=== PATIENT | male | born 1955 | race Caucasian/White ===

== ENCOUNTER 2018-05-07 15:31 | Inpatient (IN) | payer MEDICARE, OTHER ==
[2018-05-08] MEDS ORDERED: Nitroglycerin 0.4 MG Tab.SL SL PRN ×2 (15:21→16:50)
[2018-05-08] MEDS ORDERED: Ondansetron 4 MG Tab.DIS PO PRN (15:51)
[2018-05-08] MEDS ORDERED: Polyethylene Glycol 3350 Powder 17 GM Packet PO PRN (15:51)
[2018-05-08] MEDS ORDERED: Insuln Aspart Prot/Insulin Aspart 100 Units/ML 3 ML FlexPen SUBCUT SCH (17:00)
[2018-05-08] MEDS ORDERED: Warfarin 2 MG Tab PO SCH (18:00)
[2018-05-08] MEDS ORDERED: Insulin Lispro Protamine/Lispro 75-25 100 Units/ML 3 ML KwikPen SUBCUT SCH (18:00)
[2018-05-08] MEDS: Insulin Detemir 100 Units/ML 3 ML Pen SUBCUT SCH (18:46)
[2018-05-08] MEDS ORDERED: Carvedilol 25 MG Tab PO SCH (20:00)
[2018-05-08] MEDS ORDERED: Carvedilol 12.5 MG Tab PO SCH (20:00)
[2018-05-08] MEDS ORDERED: Triamcinolone Acetonide 0.1% Crm 30 GM Tube TOP SCH (20:00)
[2018-05-08] MEDS ORDERED: Gabapentin 300 MG Cap PO SCH (20:00)
[2018-05-08] MEDS ORDERED: [UNRECOGNIZED DRUG - OTHER] PO SCH (20:00)
[2018-05-08] MEDS: Carvedilol 25 MG Tab PO SCH (20:22)
[2018-05-08] MEDS: Gabapentin 300 MG Cap PO SCH (20:23)
[2018-05-08] MEDS: Acetaminophen 500 MG Tab PO SCH (20:23)
[2018-05-08] MEDS: Pravastatin 40 MG Tab PO SCH (20:23)
[2018-05-08] MEDS: Triamcinolone Acetonide 0.1% Crm 30 GM Tube TOP SCH (20:27)
--- NOTE | 2018-05-08 22:17 | PCM.HP ---
H&P History of Present Illness - General Date of Service: 05/08/18 Admit Problem/Dx: Admission Diagnosis/Problem Admission Diagnosis/Problem Amputated toe Source of Information: Detention Records History Limitations: Reports: No Limitations - History of Present Illness Initial Comments - Free Text/Narative: Pt is a 63 year old male who has peripheral vascular disease, diabetic neuropathy and previous left BKA, who recently had right toe gangrene for which he has undergone right 5th toe amputation on 04/29/17 He has developed diabetic foot infection around the amputation and has been having betadine dressings.He has been admitted for swing bed care for OT , PT and wound care. Pt on today's visit claims he is fine. He does weight bear on the right foot with his shoe on. No fever or chills. No cough. tolerating oral diet. Severity: Mild Associated Symptoms: Denies: Confusion, Chest Pain, Cough, Diaphoresis, Fever/ Chills, Headaches, Nausea/Vomiting, Rash, Seizure, Shortness of Breath, Syncope , Weakness - Related Data Allergies/Adverse Reactions: Allergies Allergy/AdvReac Type Severity Reaction Status Date / Time No Known Allergies Allergy Verified 05/08/18 10:26 Home Medications: Home Meds Acetaminophen [Acetaminophen Extra Strength] 1,000 mg PO TID 05/08/18 [History] Aspirin [Adult Low Dose Aspirin EC] 81 mg PO DAILY 05/08/18 [History] Carvedilol 50 mg PO BID 05/08/18 [History] Clopidogrel [Plavix] 75 mg PO DAILY 05/08/18 [History] Gabapentin [Neurontin] 300 mg PO TID 05/08/18 [History] Insulin Aspart Protam & Aspart [Novolog Mix 70-30 Flexpen Syrn] 64 units SUBCUT BIDMEALS 05/08/18 [History] L. Acidophilus/Pectin, [place]ott [Acidophilus Probiotic] 1 cap PO BID 05/08/18 [ History] Lisinopril 10 mg PO DAILY 05/08/18 [History] Nitroglycerin [Nitrostat] 0.4 mg SL ASDIRECTED PRN 05/08/18 [History] Pravastatin [Pravachol] 40 mg PO DAILY 05/08/18 [History] Ranitidine HCl [Ranitidine] 150 mg PO BID 05/08/18 [History] Tamsulosin [Flomax] 0.4 mg PO DAILY 05/08/18 [History] Triamcinolone Acetonide [Kenalog 0.1% Crm] 1 applic TOP BID 05/08/18 [History] Warfarin [Coumadin] 3 mg PO DAILY 05/08/18 [History] Social & Family History - Tobacco Use Smoking Status *Q: Former Smoker Years of Tobacco use: 7 Packs/Tins Daily: 0.5 Used Tobacco, but Quit: Yes Month/Year Tobacco Last Used: 1981 - Caffeine Use Caffeine Use: Reports: None - Recreational Drug Use Recreational Drug Use: No H&P Review of Systems - Review of Systems: Review Of Systems: See Below General: Denies: Fever, Chills, Night Sweats, Diaphoresis HEENT: Denies: Headaches, Rhinitis, Sore Throat Pulmonary: Denies: Shortness of Breath, Wheezing, Cough, Sputum Cardiovascular: Denies: Chest Pain, Lightheadedness Gastrointestinal: Denies: Abdominal Pain, Nausea, Vomiting Genitourinary: Denies: Dysuria, Frequency Musculoskeletal: Denies: Foot Pain, Joint Pain, Joint Swelling Skin: Reports: Wound. Denies: Pruritis, Rash Psychiatric: Reports: Anxiety. Denies: Depression, Mood Lability Exam - Exam Exam: See Below - Vital Signs Vital Signs: Last Vital Signs Temp 96.9 F 05/08/18 13:53 Pulse 70 05/08/18 20:22 Resp BP 128/72 05/08/18 20:22 Pulse Ox 95 05/08/18 13:53 Weight: 123.105 kg - Exam General: Alert, Oriented, Other (morbid obesity) HEENT: PERRLA, Hearing Intact, Mucosa Moist & [place], Nares Patent, Normal Nasal Septum, Posterior Pharynx Clear, Conjunctiva Clear, EOMI, EACs Clear, TMs Clear Neck: Supple, Trachea Midline, 2 Lungs: Clear to Auscultation, Normal Respiratory Effort Cardiovascular: Regular Rate, Regular Rhythm GI/Abdominal Exam: Normal Bowel Sounds, Soft, Non-Tender, No Organomegaly, No Distention, No Abnormal Bruit, No Mass, Pelvis Stable Extremities: Normal Capillary Refill, Other (Pt has left BKA with stump. His left foot has loss of gret toe, 3 rd toe with good skin covere. the 5th toe base has sutured wound with skin breakdown.There is some hyperemia extending around the wound. minimal warmth. ) - Patient Data Lab Results Last 24 hrs: Laboratory Results - last 24 hr 05/08/18 05/08/18 Range/Units 12:41 16:10 POC Glucose 147 H 190 H (74-110) mg/dL - Problem List (1) Diabetic neuropathy SNOMED Code(s): 259408601, 275330359, 054090380 ICD Code: E11.40 - TYPE 2 DIABETES MELLITUS WITH DIABETIC NEUROPATHY, UNSP Status: Acute Current Visit: Yes (2) Amputated toe of right foot SNOMED Code(s): 072353126, 439900323 ICD Code: Z89.421 - ACQUIRED ABSENCE OF OTHER RIGHT TOE(S) Status: Acute Current Visit: Yes Problem List Initiated/Reviewed/Updated: Yes Orders Last 24hrs: Active Orders 24 hr Category Date Time Status Patient Status [ADT] Routine ADT 05/08/18 16:49 Active Consult to Wound Care Services [CONS] Routine Cons 05/08/18 19:35 Active OT Evaluation and Treatment [CONS] Routine Cons 05/08/18 14:56 Active PT Evaluation and Treatment [CONS] Routine Cons 05/08/18 14:56 Active Cardiac Diet [Heart Healthy Diet] [DIET] Diet 05/09/18 Breakfast Ordered Consistent Carbohydrate Diet [DIET] Diet 05/09/18 Breakfast Ordered INR,PT,PROTHROMBIN TIME [COAG] Routine Lab 05/09/18 09:00 Ordered Acetaminophen [Tylenol Extra Strength] Med 05/08/18 20:00 Active 1,000 mg PO TID Aspirin [Halfprin] Med 05/09/18 08:00 Active 81 mg PO DAILY Carvedilol [Coreg] Med 05/08/18 20:00 Active 50 mg PO BID Clopidogrel [Plavix] Med 05/09/18 08:00 Active 75 mg PO DAILY Docusate Sodium/Sennosides [Senna Plus] Med 05/08/18 15:52 Active 1 tab PO DAILY PRN Gabapentin [Neurontin] Med 05/08/18 20:00 Active 300 mg PO TID Insulin Detemir [Levemir] Med 05/08/18 18:15 Active 64 unit SUBCUT BIDMEALS L. Acidophilus/Pectin, [place]ott [Acidophilus Probiotic] Med 05/08/18 20:00 Pending 1 cap PO BID Lisinopril [Prinivil] Med 05/09/18 08:00 Active 10 mg PO DAILY Nitroglycerin [Nitrostat] Med 05/08/18 15:21 Active 0.4 mg SL ASDIRECTED PRN Ondansetron [Zofran ODT] Med 05/08/18 15:51 Active 4 mg PO Q6H PRN Polyethylene Glycol 3350 [MiraLAX] Med 05/08/18 15:51 Active 17 gm PO DAILY PRN Pravastatin [Pravachol] Med 05/08/18 20:00 Active 40 mg PO QPM Ranitidine [Zantac] Med 05/08/18 20:00 Active 150 mg PO BID Tamsulosin [Flomax] Med 05/09/18 08:00 Active 0.4 mg PO DAILY Triamcinolone Acetonide [Kenalog 0.1% Crm] Med 05/08/18 20:00 Active 0 gm TOP BID Warfarin [Coumadin] Med 05/09/18 18:00 Hold 3 mg PO DAILY@1800 Resuscitation Status Routine Resus Stat 05/08/18 16:49 Ordered Medication Orders Acetaminophen (Tylenol Extra Strength) 1,000 mg PO TID [facility] Last Admin: 05/08/18 20:23 Dose: 1,000 mg Aspirin (Halfprin) 81 mg PO DAILY [facility] Carvedilol (Coreg) 50 mg PO BID [facility] Last Admin: 05/08/18 20:22 Dose: 50 mg Clopidogrel Bisulfate (Plavix) 75 mg PO DAILY [facility] Gabapentin (Neurontin) 300 mg PO TID [facility] Last Admin: 05/08/18 20:23 Dose: 300 mg Insulin Detemir (Levemir) 64 unit SUBCUT BIDMEALS [facility] Last Admin: 05/08/18 18:46 Dose: 64 units Lisinopril (Prinivil) 10 mg PO DAILY [facility] Nitroglycerin (Nitrostat) 0.4 mg SL ASDIRECTED PRN PRN Reason: ANGINA Non-Formulary Medication (L. Acidophilus/Pectin, Ridott [Acidophilus Probiotic] ) 1 cap PO BID [facility] Ondansetron HCl (Zofran Odt) 4 mg PO Q6H PRN PRN Reason: NAUSEA Polyethylene Glycol (Miralax) 17 gm PO DAILY PRN PRN Reason: CONSTIPATION Pravastatin Sodium (Pravachol) 40 mg PO QPM [facility] Last Admin: 05/08/18 20:23 Dose: 40 mg Ranitidine HCl (Zantac) 150 mg PO BID [facility] Last Admin: 05/08/18 20:24 Dose: 150 mg Senna/Docusate Sodium (Senna Plus) 1 tab PO DAILY PRN PRN Reason: CONSTIPATION Tamsulosin HCl (Flomax) 0.4 mg PO DAILY [facility] Triamcinolone Acetonide (Kenalog 0.1% Crm) 0 gm TOP BID [facility] Last Admin: 05/08/18 20:27 Dose: 1 applic Warfarin Sodium (Coumadin) 3 mg PO DAILY@1800 [facility] Assessment/Plan Comment:: Assessment: S/P rigth 5th toe amputation with poor wound healing due to PVD Plan: will admit patient as swing bed status. Will continue present medication regime. Will monitor the foot wound closely for any deterioration. Pt is weight bearing on right foot with the shoe on. Will have OT and PT evaluation.IF the wound worsens or not healing plan is to have surgical followup with patient's label rewinder of further workup.
[2018-05-09] MEDS ORDERED: Lisinopril 10 MG Tab PO SCH ×2 (08:00)
[2018-05-09] MEDS ORDERED: Clopidogrel 75 MG Tab PO SCH (08:00)
[2018-05-09] MEDS ORDERED: Aspirin 81 MG Tab.EC PO SCH (08:00)
[2018-05-09] MEDS ORDERED: Lisinopril 20 MG Tab PO SCH ×2 (08:00)
[2018-05-09] MEDS ORDERED: Hydrocortisone 2.5% Crm 30 GM Tube TOP SCH (08:00)
[2018-05-09] MEDS ORDERED: Pravastatin 40 MG Tab PO SCH (08:00)
[2018-05-09] MEDS ORDERED: Tamsulosin 0.4 MG Cap.ER PO SCH (08:00)
[2018-05-09] MEDS: Gabapentin 300 MG Cap PO SCH ×3 (08:01→20:09)
[2018-05-09] MEDS: Acetaminophen 500 MG Tab PO SCH ×3 (08:01→20:09)
[2018-05-09] MEDS: Clopidogrel 75 MG Tab PO SCH (08:01)
[2018-05-09] MEDS: Lisinopril 10 MG Tab PO SCH (08:01)
[2018-05-09] MEDS: Carvedilol 25 MG Tab PO SCH ×2 (08:02→20:10)
[2018-05-09] MEDS: Aspirin 81 MG Tab.EC PO SCH (11:47)
[2018-05-09] MEDS: Triamcinolone Acetonide 0.5% Crm 15 GM Tube TOP SCH ×2 (11:48→20:10)
[2018-05-09] MEDS: Hydrocortisone 2.5% Crm 30 GM Tube TOP SCH (11:50)
[2018-05-09] MEDS: Tuberculin, PPD 5 Units/0.1 ML 1 ML MDV IDERM ONE ×2 (12:07→16:14)
[2018-05-09] MEDS: Lactobacillus Acidophilus/Lactobacillus Sporogenes (Probiotic) Tab PO SCH (13:11)
[2018-05-09] MEDS: Tamsulosin 0.4 MG Cap.ER PO SCH (14:00)
[2018-05-09] MEDS ORDERED: BETAMETHASONE VALERATE 0.1% TOP SCH (14:30)
[2018-05-09] MEDS ORDERED: Warfarin 3 MG Tab PO SCH (18:00)
[2018-05-09] MEDS ORDERED: Warfarin 5 MG Tab PO SCH (18:00)
[2018-05-09] MEDS: Insulin Lispro Protamine/Lispro 75-25 100 Units/ML 3 ML KwikPen SUBCUT SCH (18:46)
[2018-05-09] MEDS: Pravastatin 40 MG Tab PO SCH (20:10)
[2018-05-09] MEDS ORDERED: Warfarin 5 MG Tab PO ONE (20:15)
[2018-05-10] MEDS: Lactobacillus Acidophilus/Lactobacillus Sporogenes (Probiotic) Tab PO SCH (07:51)
[2018-05-10] MEDS: Carvedilol 25 MG Tab PO SCH ×2 (07:51→20:10)
[2018-05-10] MEDS: Gabapentin 300 MG Cap PO SCH ×3 (07:51→20:11)
[2018-05-10] MEDS: Tamsulosin 0.4 MG Cap.ER PO SCH (07:52)
[2018-05-10] MEDS: Clopidogrel 75 MG Tab PO SCH (07:52)
[2018-05-10] MEDS: Lisinopril 10 MG Tab PO SCH (07:52)
[2018-05-10] MEDS: Acetaminophen 500 MG Tab PO SCH ×3 (07:52→20:11)
[2018-05-10] MEDS: Insulin Lispro Protamine/Lispro 75-25 100 Units/ML 3 ML KwikPen SUBCUT SCH ×2 (07:53→17:51)
[2018-05-10] MEDS: Triamcinolone Acetonide 0.5% Crm 15 GM Tube TOP SCH ×2 (07:53→20:15)
[2018-05-10] MEDS: Aspirin 81 MG Tab.EC PO SCH (13:11)
[2018-05-10] MEDS: Warfarin 3 MG Tab PO SCH (17:55)
[2018-05-10] MEDS: Pravastatin 40 MG Tab PO SCH (20:11)
[2018-05-11] MEDS: oxyCODONE 5 MG Tab PO PRN ×2 (01:37→20:51)
[2018-05-11] MEDS: Acetaminophen 500 MG Tab PO SCH ×3 (08:17→20:45)
[2018-05-11] MEDS: Clopidogrel 75 MG Tab PO SCH (08:17)
[2018-05-11] MEDS: Lisinopril 10 MG Tab PO SCH (08:17)
[2018-05-11] MEDS: Tamsulosin 0.4 MG Cap.ER PO SCH (08:17)
[2018-05-11] MEDS: Gabapentin 300 MG Cap PO SCH ×3 (08:17→20:45)
[2018-05-11] MEDS: Lactobacillus Acidophilus/Lactobacillus Sporogenes (Probiotic) Tab PO SCH (08:18)
[2018-05-11] MEDS: Carvedilol 25 MG Tab PO SCH ×2 (08:18→20:45)
[2018-05-11] MEDS: Triamcinolone Acetonide 0.5% Crm 15 GM Tube TOP SCH ×2 (08:19→20:52)
[2018-05-11] MEDS: Aspirin 81 MG Tab.EC PO SCH (08:19)
[2018-05-11] MEDS: Insulin Lispro Protamine/Lispro 75-25 100 Units/ML 3 ML KwikPen SUBCUT SCH ×2 (08:20→17:58)
[2018-05-11] MEDS: Triamcinolone Acetonide 0.1% Crm 30 GM Tube TOP SCH (11:48)
[2018-05-11] MEDS: Insulin Detemir 100 Units/ML 3 ML Pen SUBCUT SCH (11:50)
[2018-05-11] MEDS: Warfarin 3 MG Tab PO SCH (18:06)
[2018-05-11] MEDS: Pravastatin 40 MG Tab PO SCH (20:46)
[2018-05-12] MEDS: Lactobacillus Acidophilus/Lactobacillus Sporogenes (Probiotic) Tab PO SCH (08:13)
[2018-05-12] MEDS: Carvedilol 25 MG Tab PO SCH ×2 (08:14→19:44)
[2018-05-12] MEDS: Aspirin 81 MG Tab.EC PO SCH (08:15)
[2018-05-12] MEDS: Tamsulosin 0.4 MG Cap.ER PO SCH (08:15)
[2018-05-12] MEDS: Gabapentin 300 MG Cap PO SCH ×3 (08:15→19:43)
[2018-05-12] MEDS: Clopidogrel 75 MG Tab PO SCH (08:16)
[2018-05-12] MEDS: Lisinopril 10 MG Tab PO SCH (08:16)
[2018-05-12] MEDS: Acetaminophen 500 MG Tab PO SCH ×3 (08:17→19:43)
[2018-05-12] MEDS: Insulin Lispro Protamine/Lispro 75-25 100 Units/ML 3 ML KwikPen SUBCUT SCH ×2 (08:19→17:09)
[2018-05-12] MEDS: Triamcinolone Acetonide 0.5% Crm 15 GM Tube TOP SCH ×2 (08:26→19:43)
[2018-05-12] MEDS: Hydrocortisone 2.5% Crm 30 GM Tube TOP SCH (16:29)
[2018-05-12] MEDS: Warfarin 3 MG Tab PO SCH (17:33)
[2018-05-12] MEDS: Pravastatin 40 MG Tab PO SCH (19:43)
[2018-05-12] MEDS: oxyCODONE 5 MG Tab PO PRN (23:15)
[2018-05-13] MEDS: Carvedilol 25 MG Tab PO SCH ×2 (07:57→20:12)
[2018-05-13] MEDS: Acetaminophen 500 MG Tab PO SCH ×3 (07:57→20:13)
[2018-05-13] MEDS: Tamsulosin 0.4 MG Cap.ER PO SCH (07:58)
[2018-05-13] MEDS: Lactobacillus Acidophilus/Lactobacillus Sporogenes (Probiotic) Tab PO SCH (07:58)
[2018-05-13] MEDS: Aspirin 81 MG Tab.EC PO SCH (07:59)
[2018-05-13] MEDS: Lisinopril 10 MG Tab PO SCH (07:59)
[2018-05-13] MEDS: Gabapentin 300 MG Cap PO SCH ×3 (07:59→20:12)
[2018-05-13] MEDS: Clopidogrel 75 MG Tab PO SCH (08:00)
[2018-05-13] MEDS: Triamcinolone Acetonide 0.5% Crm 15 GM Tube TOP SCH ×2 (08:01→20:14)
[2018-05-13] MEDS: Insulin Lispro Protamine/Lispro 75-25 100 Units/ML 3 ML KwikPen SUBCUT SCH ×2 (08:11→17:26)
--- NOTE | 2018-05-13 10:00 | PCM.SN ---
- Free Text/Narrative Note: Pt has be doing well with Physical rehabilitation here. He has been able to ambulate about 40 feet without assistance. Pt is home bound at this point due to his foot surgical wound.Pt cannot ambulate yet enough to be out of the house. Hence I strongly recommend home health nurse visit for daily wound check and wound dressing.
[2018-05-13] MEDS: Warfarin 3 MG Tab PO SCH (17:30)
[2018-05-13] MEDS: Pravastatin 40 MG Tab PO SCH (20:12)
[2018-05-14] MEDS: Acetaminophen 500 MG Tab PO SCH ×3 (07:52→19:38)
[2018-05-14] MEDS: Tamsulosin 0.4 MG Cap.ER PO SCH (07:52)
[2018-05-14] MEDS: Clopidogrel 75 MG Tab PO SCH (07:53)
[2018-05-14] MEDS: Carvedilol 25 MG Tab PO SCH ×2 (07:53→19:37)
[2018-05-14] MEDS: Gabapentin 300 MG Cap PO SCH ×3 (07:53→19:37)
[2018-05-14] MEDS: Lisinopril 10 MG Tab PO SCH (07:53)
[2018-05-14] MEDS: Lactobacillus Acidophilus/Lactobacillus Sporogenes (Probiotic) Tab PO SCH (07:53)
[2018-05-14] MEDS: Triamcinolone Acetonide 0.5% Crm 15 GM Tube TOP SCH ×2 (07:54→19:38)
[2018-05-14] MEDS: Aspirin 81 MG Tab.EC PO SCH (07:54)
[2018-05-14] MEDS: Insulin Lispro Protamine/Lispro 75-25 100 Units/ML 3 ML KwikPen SUBCUT SCH ×2 (08:51→17:43)
[2018-05-14] MEDS: Warfarin 3 MG Tab PO SCH (18:28)
[2018-05-14] MEDS: Pravastatin 40 MG Tab PO SCH (19:37)
[2018-05-15] MEDS: Acetaminophen 500 MG Tab PO SCH (07:39)
[2018-05-15] MEDS: Gabapentin 300 MG Cap PO SCH (07:40)
[2018-05-15] MEDS: Lisinopril 10 MG Tab PO SCH (07:40)
[2018-05-15] MEDS: Aspirin 81 MG Tab.EC PO SCH (07:40)
[2018-05-15] MEDS: Carvedilol 25 MG Tab PO SCH (07:41)
[2018-05-15] MEDS: Tamsulosin 0.4 MG Cap.ER PO SCH (07:41)
[2018-05-15] MEDS: Lactobacillus Acidophilus/Lactobacillus Sporogenes (Probiotic) Tab PO SCH (07:41)
[2018-05-15] MEDS: Clopidogrel 75 MG Tab PO SCH (07:41)
[2018-05-15 07:44] VITALS: BP 143/60
[2018-05-15] MEDS: Insulin Lispro Protamine/Lispro 75-25 100 Units/ML 3 ML KwikPen SUBCUT SCH (09:10)
--- NOTE | 2018-05-15 09:46 | PCM.DCSUM1 ---
Discharge Summary - Hospital Course Free Text/Narrative:: Pt is a 63 year old male admitted for swing bed level of care post right little finger amputation from complication of diabetic neuropathy. Pt has done well. his foot wound has been healing gradually. he has been able to ambulate 40-60 feet without assistance and able to do ADLS. Hence patient has been planned for discharge today. Pt has no concerns. Pt will continue home meds. his Insulin will be changed to novolog 70/30. Also Home health will be set up to monitor the wound and also to have his PT and INR monitor. 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 Brief History: Admitted to swing bed for OT and PT care. Kindly see H&P for details. Diagnosis: Stroke: No - Discharge Data Discharge Date: 05/15/18 Discharge Disposition: Home, Self-Care 01 Condition: Good - Discharge Diagnosis/Problem(s) (1) Diabetic neuropathy SNOMED Code(s): 125167431, 335193324, 874944333 ICD Code: E11.40 - TYPE 2 DIABETES MELLITUS WITH DIABETIC NEUROPATHY, UNSP Status: Acute Current Visit: Yes (2) Amputated toe of right foot SNOMED Code(s): 370969664, 366212935 ICD Code: Z89.421 - ACQUIRED ABSENCE OF OTHER RIGHT TOE(S) Status: Acute Current Visit: Yes - Patient Summary/Data Consults: Consultations 05/08/18 14:56 OT Evaluation and Treatment [CONS] Routine Please Evaluate and Treat. OT Reason for Consult: Strengthening This query below is only for informational purposes and is not editable. Admission Diagnosis/Problem: Amputated toe PT Evaluation and Treatment [CONS] Routine Please Evaluate and Treat. PT Reason for Consult: Strengthening This query below is only for informational purposes and is not editable. Admission Diagnosis/Problem: Amputated toe 05/08/18 19:35 Consult to Wound Care Services [CONS] Routine Comment: Physician Instructions: - Patient Instructions Diet: Diabetic Diet Fluid Restriction: 1500 mL Activity: As Tolerated Showering/Bathing: May Shower - Discharge Plan Home Medications: Home Meds Acetaminophen [Acetaminophen Extra Strength] 1,000 mg PO TID 05/08/18 [History] Aspirin [Adult Low Dose Aspirin EC] 81 mg PO DAILY 05/08/18 [History] Carvedilol 50 mg PO BID 05/08/18 [History] Clopidogrel [Plavix] 75 mg PO DAILY 05/08/18 [History] Gabapentin [Neurontin] 300 mg PO TID 05/08/18 [History] L. Acidophilus/Pectin, Cherry [Acidophilus Probiotic] 1 cap PO BID 05/08/18 [ History] Lisinopril 10 mg PO DAILY 05/08/18 [History] Nitroglycerin [Nitrostat] 0.4 mg SL ASDIRECTED PRN 05/08/18 [History] Pravastatin [Pravachol] 40 mg PO DAILY 05/08/18 [History] Ranitidine HCl [Ranitidine] 150 mg PO BID 05/08/18 [History] Tamsulosin [Flomax] 0.4 mg PO DAILY 05/08/18 [History] Warfarin [Coumadin] 3 mg PO DAILY 05/08/18 [History] Acidophilus/Lactobac Spor [Acidolphilus X-Strength] 1 tab PO DAILY tablet 05/15 [Rx] Aspirin [Halfprin] 81 mg PO DAILY tab.ec 05/15/18 [Rx] Betamethasone Valerate [Valisone 0.1% Lotion] 60 ml TOP ASDIRECTED bottle 05/15 [Rx] Carvedilol [Coreg] 50 mg PO BID tablet 05/15/18 [Rx] Clopidogrel [Plavix] 75 mg PO DAILY tablet 05/15/18 [Rx] Hydrocortisone [Hydrocortisone 2.5% Crm] 30 gm TOP ASDIRECTED tube 05/15/18 [Rx ] Nitroglycerin [Nitrostat] 0.4 mg SL ASDIRECTED PRN tab.sl 05/15/18 [Rx] Ondansetron [Zofran ODT] 4 mg PO Q6H PRN tab.dis 05/15/18 [Rx] Polyethylene Glycol 3350 [MiraLAX] 17 gm PO DAILY PRN packet 05/15/18 [Rx] Pravastatin [Pravachol] 40 mg PO QPM tablet 05/15/18 [Rx] Triamcinolone Acetonide [Kenalog 0.1% Crm] 0 gm TOP BID tube 05/15/18 [Rx] Triamcinolone Acetonide [Triamcinolone Acetonide 0.5%] 15 gm TOP BID tube 05/15 [Rx] Warfarin [Coumadin] 3 mg PO DAILY@1800 tablet 05/15/18 [Rx] oxyCODONE 5 mg PO Q6H PRN tablet 05/15/18 [Rx] - General Info Date of Service: 05/15/18 Subjective Update: Pt claims he feel good today. No concerns. - Review of Systems General: Denies: Weakness, Fatigue HEENT: Denies: Headaches, Sore Throat Pulmonary: Denies: Shortness of Breath, Cough Cardiovascular: Denies: Chest Pain, Lightheadedness Genitourinary: Denies: Dysuria, Frequency Musculoskeletal: Denies: Joint Pain, Joint Swelling Skin: Denies: Bruising, Pruritis, Rash Neurological: Reports: Numbness. Denies: Confusion, Dizziness, Headache, Tingling - Patient Data Vitals - Most Recent: Last Vital Signs Temp 98.6 F 05/14/18 19:39 Pulse 61 05/15/18 07:41 Resp 18 05/14/18 19:39 BP 143/60 H 05/15/18 07:41 Pulse Ox 97 05/14/18 19:39 Weight - Most Recent: 122.13 kg Lab Results - Last 24 hrs: Laboratory Results - last 24 hr 05/14/18 05/14/18 05/15/18 Range/Units 09:03 16:29 08:08 POC Glucose 141 H 99 189 H (74-110) mg/dL Med Orders - Current: Current Medications Acetaminophen (Tylenol Extra Strength) 1,000 mg PO TID [facility] Last Admin: 05/15/18 07:39 Dose: 1,000 mg Aspirin (Halfprin) 81 mg PO DAILY [facility] Last Admin: 05/15/18 07:40 Dose: 81 mg Betamethasone Valerate (Valisone 0.1% Lotion) 60 ml TOP ASDIRECTED [facility] Carvedilol (Coreg) 50 mg PO BID [facility] Last Admin: 05/15/18 07:41 Dose: 50 mg Clopidogrel Bisulfate (Plavix) 75 mg PO DAILY [facility] Last Admin: 05/15/18 07:41 Dose: 75 mg Gabapentin (Neurontin) 300 mg PO TID [facility] Last Admin: 05/15/18 07:40 Dose: 300 mg Hydrocortisone (Hydrocortisone 2.5% Crm) 30 gm TOP ASDIRECTED [facility] Last Admin: 05/12/18 16:29 Dose: 1 applic Insulin Lispro Protam/Lispro Human (Humalog Mix 75-25) 64 unit SUBCUT BID@0730, 1630 [facility] Last Admin: 05/15/18 09:10 Dose: 64 units Lactobacillus Acidophilus (Acidolphilus Extra Strength) 1 tab PO DAILY [facility] Last Admin: 05/15/18 07:41 Dose: 1 tab Lisinopril (Prinivil) 10 mg PO DAILY [facility] Last Admin: 05/15/18 07:40 Dose: 10 mg Nitroglycerin (Nitrostat) 0.4 mg SL ASDIRECTED PRN PRN Reason: ANGINA Ondansetron HCl (Zofran Odt) 4 mg PO Q6H PRN PRN Reason: NAUSEA Oxycodone HCl (Oxycodone) 5 mg PO Q6H PRN PRN Reason: Pain Last Admin: 05/12/18 23:15 Dose: 5 mg Polyethylene Glycol (Miralax) 17 gm PO DAILY PRN PRN Reason: CONSTIPATION Pravastatin Sodium (Pravachol) 40 mg PO QPM [facility] Last Admin: 05/14/18 19:37 Dose: 40 mg Ranitidine HCl (Zantac) 150 mg PO BID [facility] Last Admin: 05/15/18 07:41 Dose: 150 mg Senna/Docusate Sodium (Senna Plus) 1 tab PO DAILY PRN PRN Reason: CONSTIPATION Tamsulosin HCl (Flomax) 0.4 mg PO DAILY [facility] Last Admin: 05/15/18 07:41 Dose: 0.4 mg Triamcinolone Acetonide (Kenalog 0.1% Crm) 0 gm TOP BID [facility] Last Admin: 05/11/18 11:48 Dose: Not Given Triamcinolone Acetonide (Triamcinolone Acetonide 0.5%) 15 gm TOP BID [facility] Last Admin: 05/14/18 19:38 Dose: 1 applic Warfarin Sodium (Coumadin) 3 mg PO DAILY@1800 [facility] Stop: 05/15/18 18:30 Last Admin: 05/14/18 18:28 Dose: 3 mg Discontinued Medications Aspirin (Halfprin) 81 mg PO DAILY [facility] Carvedilol (Coreg) 50 mg PO BID [facility] Clopidogrel Bisulfate (Plavix) 75 mg PO DAILY [facility] Gabapentin (Neurontin) 300 mg PO TID [facility] Hydrocortisone (Hydrocortisone 2.5% Crm) 30 gm TOP BID [facility] Last Admin: 05/11/18 11:49 Dose: Not Given Insulin Detemir (Levemir) 64 unit SUBCUT BIDMEALS [facility] Last Admin: 05/11/18 11:50 Dose: Not Given Insulin Lispro Protam/Lispro Human (Humalog Mix 75-25) 64 unit SUBCUT BID@0730, 1800 [facility] Lisinopril (Prinivil) 10 mg PO DAILY [facility] Nitroglycerin (Nitrostat) 0.4 mg SL ASDIRECTED PRN PRN Reason: Chest Pain Pravastatin Sodium (Pravachol) 40 mg PO DAILY [facility] Ranitidine HCl (Zantac) 150 mg PO BID [facility] Tamsulosin HCl (Flomax) 0.4 mg PO DAILY [facility] Triamcinolone Acetonide (Kenalog 0.1% Crm) 30 gm TOP BID [facility] Tuberculin PPD (Aplisol) 5 unit IDERM ONETIME ONE Stop: 05/08/18 16:50 Last Admin: 05/09/18 16:14 Dose: Not Given Warfarin Sodium (Coumadin) 2 mg PO DAILY@1800 [facility] Warfarin Sodium (Coumadin) 3 mg PO DAILY@1800 [facility] Warfarin Sodium (Coumadin) 3 mg PO DAILY@1800 [facility] Stop: 05/11/18 18:01 Last Admin: 05/11/18 18:06 Dose: 3 mg Warfarin Sodium (Coumadin) 5 mg PO DAILY@1800 [facility] Stop: 05/09/18 20:00 Warfarin Sodium (Coumadin) 5 mg PO ONETIME ONE Stop: 05/09/18 20:16 Last Admin: 05/09/18 20:23 Dose: 5 mg - Exam General: Reports: Alert, Oriented HEENT: Reports: Pupils Equal, Pupils Reactive, EOMI, Mucous Membr. Moist/[place] Neck: Reports: Supple Lungs: Reports: Clear to Auscultation, Normal Respiratory Effort Cardiovascular: Reports: Regular Rate, Regular Rhythm GI/Abdominal Exam: Normal Bowel Sounds, Soft, Non-Tender, No Organomegaly, No Distention, No Abnormal Bruit, No Mass, Pelvis Stable Back Exam: Reports: Normal Inspection, Full Range of Motion Extremities: Normal Inspection, Normal Range of Motion, Non-Tender, No Pedal Edema, Normal Capillary Refill Skin: Reports: Warm, Intact, Other (Foot amputation wound is healing. No signs of infection) Wound/Incisions: Reports: Healing Well
== END 2018-05-15 11:15 | disposition home or self-care (01) | DRG 949 ==
LOC: LB.MS 05-08 13:03 → UNDOADMIN 05-08 13:03 → LB.MS 05-08 14:54
PROVIDERS: ADMIT Family Medicine; ATTEND Family Medicine
DX: Z48.89 Encounter for other specified surgical aftercare (principal); I48.92 Unspecified atrial flutter; Z95.811 Presence of heart assist device; Z66 Do not resuscitate; E11.40 Type 2 diabetes mellitus with diabetic neuropathy, unspecified; Z79.4 Long term (current) use of insulin; Z89.421 Acquired absence of other right toe(s); Z89.512 Acquired absence of left leg below knee; E11.51 Type 2 diabetes mellitus with diabetic peripheral angiopathy without gangrene; I12.9 Hypertensive chronic kidney disease with stage 1 through stage 4 chronic kidney disease, or unspecified chronic kidney disease; E11.22 Type 2 diabetes mellitus with diabetic chronic kidney disease; N18.3 Chronic kidney disease, stage 3 (moderate); Z87.891 Personal history of nicotine dependence; Z79.01 Long term (current) use of anticoagulants; Z51.81 Encounter for therapeutic drug level monitoring; Z79.899 Other long term (current) drug therapy; Z79.82 Long term (current) use of aspirin; E66.01 Morbid (severe) obesity due to excess calories; Z68.39 Body mass index [BMI] 39.0-39.9, adult
CPT/HCPCS: 36415; 82962; 85025; 85610; 86580; 97110-GP; 97161-GP; 97165-GO; 97530-GO; 97530-GP; 97535-GO; A9270-GY